=== PATIENT | male | born 1985 | race Caucasian/White ===

== ENCOUNTER 2024-04-14 01:47 | Emergency (ER) | payer SELFPAY ==
[~2024-04-14] VITALS: Ht 175.3 cm; Wt 84.9 kg
[2024-04-14 01:54] VITALS: TEMP 97.7; O2SAT 99
[2024-04-14] MEDS ORDERED: DIPH25TA62 MT (02:15)
[2024-04-14] MEDS ORDERED: METH4TAB95 MT (02:15)
[2024-04-14 03:03] VITALS: BP 136/83; PULSE 60; RESP 18; O2SAT 99
[2024-04-14] MEDS: DIPHENHYDRAMINE 25MG CAPSULE PO ONE (03:03)
== END 2024-04-14 03:06 | disposition home or self-care (01) ==
LOC: ER 02:02
DX: L55.9 Sunburn, unspecified (principal); L29.8 Other pruritus; I10 Essential (primary) hypertension; J45.909 Unspecified asthma, uncomplicated; Z88.6 Allergy status to analgesic agent
CPT/HCPCS: 99283; Q0163